=== PATIENT | male | born 1960 | race African-American/Black ===

== ENCOUNTER 2018-10-27 08:13 | Day surgery (SDC) | payer MEDICAID ==
[~2018-10-27] VITALS: Ht 175.3 cm; Wt 109.3 kg
[~2018-10-27 08:13] MED LIST: ALBU18HF2 IH; ALBU4TAB6 PO; AMI2 PO; AMLO5TAB4 PO; ASPI-1393 PO; COR12 PO; DOCU-150 PO; ENAL20TA PO; ERGO500013 PO; FLUT1BLS IH; FOLI-43 PO; FURO-151 PO; HYDR-519 PO; MONT10TA21 PO; MV,M1TAB2 PO; RIVA20TA PO; SIMV40TA5 PO; SPIR25TA PO; TIOT4MIS2 IH
[2018-10-27] MEDS ORDERED: LACTATED RINGERS 1,000 ML IV SCH (09:15)
[2018-10-27 09:48] LABS: HEMATOCRIT. 44.3 % (42.0-52.0); MEAN CORPUSCULAR HEMOGLOBIN 30.7 pg (28.0-32.0); MEAN CORPUSCULAR VOLUME 90.9 fL (80.0-94.0); MEAN PLATELET VOLUME 8.5 fl (7.4-10.4); PLATELET 221 x1000/uL (130-400); RED BLOOD CELL COUNT 4.88 mill/uL (4.7-6.1); RED CELL DISTRIBUTION WIDTH 15.8 % (11.6-14.6)
[2018-10-27 09:58] LABS: PARTIAL THROMBOPLASTIN TIME 28.8 sec (23.4-31.0); PROTHROMBIN TIME 10.8 sec (9.6-11.0)
[2018-10-27] MEDS ORDERED: SIMETHICONE 40 MG/0.6 ML 30ML ONE (10:30)
[2018-10-27] MEDS ORDERED: PROPOFOL 200MG/20ML VIAL IV ONE (10:33)
[2018-10-27] MEDS ORDERED: MIDAZOLAM HCL 2 MG/2 ML VIAL ONE ×2 (10:33→10:49)
[2018-10-27] MEDS ORDERED: SUCCINYLCHOLINE CHLORIDE 200MG/10ML IV ONE (10:33)
[2018-10-27 10:51] LABS: CHLORIDE 105 mEq/L (98-107)
[2018-10-27] MEDS ORDERED: FLUMAZENIL 0.1 MG/ML 5ML VIAL IV ONE (10:52)
[2018-10-27] MEDS ORDERED: SODIUM CHLORIDE 0.9% 1,000 ML IV ONE (10:59)
[2018-10-27] MEDS ORDERED: ONDANSETRON HCL 4MG/2ML INJ IV PRN (11:00)
[2018-10-27 12:17] LABS: PLATELET ESTIMATE NORMAL
[2018-10-27] MEDS ORDERED: ALBUTEROL (0.083%) 2.5MG/3ML NEB HHN ONE (12:30)
[2018-10-27] MEDS ORDERED: ALBUTEROL (0.083%) 2.5MG/3ML NEB HHN NR (15:45)
== END 2018-10-27 13:20 | disposition home or self-care (01) ==
LOC: OR 08:13
PROVIDERS: ATTEND Internal Medicine Gastroenterology
DX: K62.5 Hemorrhage of anus and rectum (principal); K64.8 Other hemorrhoids; J44.9 Chronic obstructive pulmonary disease, unspecified; I49.9 Cardiac arrhythmia, unspecified; Z95.810 Presence of automatic (implantable) cardiac defibrillator; Z99.81 Dependence on supplemental oxygen; Z86.718 Personal history of other venous thrombosis and embolism; Z87.891 Personal history of nicotine dependence
CPT/HCPCS: 36415; 45378; 80048; 85025; 85610; 85730; 94640; J0330; J2250; J2704; J3490; J7611